=== PATIENT | male | born 1945 | race Caucasian/White ===

== ENCOUNTER 2017-01-27 08:53 | Day surgery (SDC) | payer MEDICARE, OTHER ==
[2017-01-26 11:08] VITALS: BMI 25.8
[2017-01-27] MEDS ORDERED: MIDAZOLAM HCL 2 MG/2 ML SINGLE DOSE VIAL ONE ×3 (11:09→11:30)
[2017-01-27] MEDS ORDERED: LEVOFLOXACIN 500 MG PREMIX BAG IVPB ONE (11:17)
[2017-01-27] MEDS ORDERED: LEVOFLOXACIN 500 MG IVPB 100 ML IVPB ONE (11:17)
--- NOTE | 2017-01-27 11:23 | OP ---
Operative Note - Note: Operative Date: 01/27/17 Pre-Operative Diagnosis: Left renal calculus Operation: Left ESWL Findings: Left 7 mm renal calculus Post-Operative Diagnosis: Same as Pre-op Surgeon: Rickey Salcedo MD. Anesthesia: MAC Operative Report Dictated: Yes
[2017-01-27] MEDS ORDERED: DEXAMETHASONE SOD PHOSPHATE 4 MG/1 ML VIAL ONE (11:24)
[2017-01-27] MEDS ORDERED: ELECTROLYTE-148 SOLN 1,000 ML IV SCH (11:30)
[2017-01-27 12:36] VITALS: TEMP 98
[2017-01-27 16:37] VITALS: BP 137/74; PULSE 60
--- NOTE | 2017-01-28 09:32 | OP ---
DATE OF OPERATION: 01/27/2017 SURGEON: Rickey Salcedo MD PREOPERATIVE DIAGNOSIS: Left renal calculus. POSTOPERATIVE DIAGNOSIS: Left renal calculus. PROCEDURE: Left electroshock wave lithotripsy. HISTORY: This is a 71-year-old gentleman with a long history of renal calculi, BPH, and hypogonadism. On preoperative examination he was found to have a 7-mm left renal calculus. After discussing treatment options including observation, the patient elected to undergo the above stated procedure. Risks and benefits of treatment and alternative treatment options were discussed in detail. All questions were answered. BRIEF OPERATIVE NOTE: The patient was brought to the operating room and placed in the supine position. Once the stone was localized, using 3D fluoroscopy and ultrasonography, the patient was sedated and approximately 2500 shocks were delivered in electromagnetic fashion. Preoperative intravenous antibiotics in the form of Levaquin were given. The patient tolerated the procedure well and was brought to the recovery room in stable and satisfactory condition. Taisha [id number]
== END 2017-01-27 15:35 | disposition home or self-care (01) ==
LOC: JASU-SURG 08:53
PROVIDERS: ATTEND Urology
PROC: 0TF4XZZ Fragmentation in Left Kidney Pelvis, External Approach (ICD-10-PCS; principal; 2017-01-27 11:00)
DX: N20.0 Calculus of kidney (principal)
CPT/HCPCS: 94760